=== PATIENT | female | born 1990 | race Caucasian/White ===

== ENCOUNTER 2022-11-12 03:30 | Emergency (ER) | payer MEDICAID ==
[~2022-11-12] VITALS: Ht 167.6 cm; Wt 65.0 kg
[2022-11-12 03:33] VITALS: O2SAT 98
[2022-11-12] MEDS ORDERED: ACETAMINOPHEN 325MG TABLET PO ONE (04:00)
[2022-11-12] MEDS ORDERED: ACET-2708 MT (09:06)
[2022-11-12 09:38] VITALS: BP 107/68; PULSE 91; RESP 18; TEMP 98.5
== END 2022-11-12 10:05 | disposition home or self-care (01) ==
LOC: ER 03:39
DX: R51.9 Headache, unspecified (principal)
CPT/HCPCS: 81025; 70450; 99285; Z7610 ×3